=== PATIENT | male | born 1995 | race African-American/Black ===

== ENCOUNTER 2017-01-26 01:43 | Emergency (ER) | payer SELFPAY | END 2017-01-26 02:22 | disposition home or self-care (01) | LOC: D.ER 01:43 | DX: K02.9 Dental caries, unspecified (principal); K08.89 Other specified disorders of teeth and supporting structures ==

== ENCOUNTER 2017-02-07 06:19 | Emergency (ER) | payer SELFPAY | END 2017-02-07 08:39 | disposition home or self-care (01) | LOC: D.ER 06:19 | DX: S20.219A Contusion of unspecified front wall of thorax, initial encounter (principal); S40.012A Contusion of left shoulder, initial encounter; V43.62XA Car passenger injured in collision with other type car in traffic accident, initial encounter; Y93.89 Activity, other specified; Y92.410 Unspecified street and highway as the place of occurrence of the external cause; F17.200 Nicotine dependence, unspecified, uncomplicated ==